=== PATIENT | female | born 1965 | race Caucasian/White ===

== ENCOUNTER → 2016-08-11 | Outpatient (CLI) | payer OTHER ==
[2016-08-11 11:03] LABS: CH 31.7; CHCM 33.1; HDW 2.17; HGB 14.7 gm/dL (11.4-16.0); MCH 31.5 pg (25.0-35.0); MCHC 32.7 g/dL (31.0-37.0); MCV 96.3 fL (80.0-100.0); Mean Platelet Volume 6.8; RBC 4.67 m/uL (3.80-5.40); RDW 13.2 % (11.5-15.5); WBC 17.3 k/uL (3.8-10.6)
== END | disposition home or self-care (01) ==
LOC: LABPAT 10:39
PROVIDERS: ATTEND Otolaryngology
DX: Z01.812 Encounter for preprocedural laboratory examination (principal)
CPT/HCPCS: 85027

== ENCOUNTER 2016-08-17 10:18 | Day surgery (SDC) | payer OTHER ==
[2016-08-11 15:59] VITALS: BMI 30.2
--- NOTE | 2016-08-17 07:29 | HP ---
DATE OF ADMISSION: Chief complaint is history of recurrent bilateral nasal polyps. HISTORY OF PRESENT ILLNESS: This patient is a very pleasant 51-year-old female who was recently seen in my office complaining of having nasal stuffiness but the patient has been using sinus rinses and also has been using Nasacort nasal spray which is prophylactic for nasal polyps. She had her last polypectomy performed in November of 2015. She states that she recently was switched by her insurance company from Nasacort to Flonase. I advised her that unfortunately Flonase does not have a history of suppressing nasal polyps and therefore, if they have returned, will have to see if we can either get her insurance to cover this or place her on another medication that we will suppress the recurrence of the nasal polyps. At the time that she was seen in my office, clinical examination intranasally revealed bilateral intranasal polyposis. The patient was given a 10-day course of a Decadron Dosepak in an effort to give her some relief with respect to the nasal stuffiness. It was recommended that she undergo a bilateral intranasal polypectomy under general anesthesia. Past medical history reveals that the patient has allergies to PENICILLIN, ASPIRIN, SULFA, SINGULAIR, and BENADRYL. Current medications include: 1. Hydrochlorothiazide. 2. Albuterol. 3. Ventolin. It is interesting to note the patient has a so-called triad of nasal polyps, aspirin sensitivity and allergies, so-called Greybull's triad. She has stopped smoking since I last saw her almost a year ago and I congratulated the patient on this. There is no history of diabetes mellitus or hypertension. There is a history of asthma. Review of systems is positive with respect to the respiratory system in that the patient is known to be asthmatic. The remainder of review of systems is unremarkable. Previous surgeries include multiple functional endoscopic sinus surgeries, right myringotomy with insertion of ventilation tubes, cholecystectomy, laser surgery for irregular periods, and bilateral nasal polypectomy x1. PHYSICAL EXAMINATION: This patient is a 51-year-old female who is alert and cooperative. HEENT EXAMINATION: Patient is normocephalic. Tympanic membranes are normal. Middle ear spaces are free of any fluid or infection. Pupils equal, round, and reactive to light and accommodation. Extraocular movements are within normal limits. Intranasal examination reveals slight septal deviation with compensatory hypertrophy of inferior turbinates and both nasal chambers are filled with nasal polyps bilaterally. Examination of oropharynx does not reveal evidence of any choanal polyps. Palpation of the neck, cranial nerves 2 through 12 and remainder of the head and neck exam is all within normal limits. CHEST/CARDIOVASCULAR: Both lung gonzalez are clear to percussion and auscultation. The patient is in regular sinus rhythm. S1 and S2 are present without evidence of any murmurs, S3s or S4s. Peripheral pulses are bilaterally symmetrical and within normal limits. ABDOMEN: There is no evidence of any masses, megaly or tenderness. The abdomen is soft. Skin is unremarkable. Musculoskeletal and neurological are within normal limits. The pelvic/rectal exam is deferred at this time because the patient has this done on a regular basis at her family physician's office. The remainder of physical exam is essentially unremarkable. IMPRESSION: Bilateral nasal polyposis. PLAN: The patient is scheduled undergo a bilateral intranasal polypectomy under general anesthesia. Attention RNs in the presurgical area: Please cancel any preoperative prophylactic antibiotics other that the one that I have ordered, namely Cleocin 900 mg IV x1 and also 1000 mg of Ofirmev IV, both to be given once an intravenous line has been established. If any prophylactic antibiotics other than the 900 Mg of Cleocin IV that I have ordered are sent to the presurgical area, please cancel them and return them to pharmacy and make sure the patient's account is credited appropriately. Again, the only presurgical prophylactic antibiotics the patient received is not 900 mg of Cleocin IV and along with her Ofirmev 1000 mg IV. I have explained the operation/procedure to the patient, including the risks, benefits, side effects, alternative therapies (including not receiving the proposed treatment or service), the likelihood of the patient achieving his/her goals, and potential recuperation problems for the procedure/sedation/analgesia, as well as any blood products, if indicated. I also explained to the patient the risks, benefits, and side effects of the alternatives, as well as the risks related to not receiving the proposed procedure, care treatment or services.
[~2016-08-17 10:18] MED LIST: DEXAMETHASONE SOD PHOSPHATE 10 MG/ML 1 ML VIAL IV ONE; HYDROmorphone 1 MG/ML 1 ML SYRINGE IVP PRN; LACTATED RINGERS 1,000 ML IV SCH; MIDAZOLAM 2 MG/2 ML VIAL IV PRN; ONDANSETRON 4 MG/2 ML VIAL IVP ONE; Pre Op ABX Message 1 EACH MISC MISCELLANE ONE; SCOPOLAMINE 1.5MG/72HR PATCH TRANSDERM ONE
[2016-08-17] MEDS ORDERED: LIDOCAINE 1% 20 ML VIAL (10MG/ML) FOR IV START INTRADERMA ONE (11:22)
[2016-08-17] MEDS ORDERED: CLINDAMYCIN 900 MG in DEXTROSE 5% IN WATER 50 ML IVPB ONE ×2 (11:30)
[2016-08-17] MEDS ORDERED: ACETAMINOPHEN IV (For NPO) 1,000 MG in EMPTY BAG 1 BAG IVPB ONE (11:30)
[2016-08-17] MEDS ORDERED: DEXAMETHASONE SOD PHOS (MDV) 100 MG/10 ML VIAL ONE (11:56)
[2016-08-17] MEDS ORDERED: NEOSTIGMINE 1 MG/ML 10 ML VIAL ONE (11:56)
[2016-08-17] MEDS ORDERED: GLYCOPYRROLATE 0.2 MG/ML 2 ML VIAL ONE (11:56)
[2016-08-17] MEDS ORDERED: MIDAZOLAM 2 MG/2 ML VIAL ONE (11:56)
[2016-08-17] MEDS ORDERED: LIDOCAINE 1% INJ 10MG/ML (20 ML MDV) ONE (11:56)
[2016-08-17] MEDS ORDERED: PROPOFOL 10 MG/ML 20 ML VIAL IV ONE (11:56)
[2016-08-17] MEDS ORDERED: SUCCINYLCHOLINE CHLORIDE 100 MG/5 ML SYR IV ONE (11:56)
[2016-08-17] MEDS ORDERED: ROCURONIUM BROMIDE 10 MG/ML 10 ML VIAL IV ONE (11:56)
[2016-08-17] MEDS ORDERED: fentaNYL (PF) 50 MCG/ML 2 ML AMP ONE (11:56)
[2016-08-17] MEDS ORDERED: OXYMETAZOLINE 0.05% NASL SPRAY 15 ML EA NOSTRIL ONE (12:20)
[2016-08-17 13:09] VITALS: TEMP 97.4
[2016-08-17 13:22] VITALS: RESP 18
[2016-08-17] MEDS ORDERED: HYDROcodone/APAP 5-325MG 1 EACH TAB PO ONE (14:00)
[2016-08-17 14:37] VITALS: BP 128/76; PULSE 64
--- NOTE | 2016-08-17 22:38 | OP ---
DATE OF SERVICE: SURGEON: RUBÉN CORDERO MD KELP GATHERER: PREOPERATIVE DIAGNOSIS: Bilateral intranasal polyposis. POSTOPERATIVE DIAGNOSIS: Bilateral intranasal polyposis. OPERATION: Bilateral intranasal polypectomy. ANESTHESIA: General. ESTIMATED BLOOD LOSS: Less than 40 mL. SPECIMENS REMOVED: COMPLICATIONS: None. OPERATIVE FINDINGS: OPERATIVE PROCEDURE: The patient was placed on the operating table in the supine position. After uneventful induction and endotracheal intubation, satisfactory general anesthesia was obtained. Next the patient was draped in the usual and customary fashion. Initially, Cottonoids which were saturated with Afrin nasal spray were placed alongside the right and left inferior turbinates respectively to achieve maximum vasoconstriction. Inspection revealed that both nasal chambers were completely filled with nasal polyps. The Cottonoids were left in place for a period of approximately 10 minutes to achieve maximum vasoconstriction of the inferior turbinates, and upon removal beginning on the right side, the nasal polyps were removed with multiple passes of a nasal polypectomy snare. Care was taken not to injure the inferior middle or superior turbinates. Next attention was directed to the left side, where the same procedure was carried out. That is to say, using the nasal polypectomy snare and using multiple passes with the snare, all of the large nasal polyps were removed without incident. Again care was taken not to injure the inferior middle or superior turbinates. Several very small nasal polyps were noted to remain, and these were vaporized using suction cautery. Next hemostasis was obtained by applying the agent Hemostat powder in the usual fashion to both nares. No packing was inserted. At this point the procedure was terminated. There were no intraoperative complications. All specimens were sent to Pathology in formalin for permanent sectioning. The patient tolerated the procedure well. A mustache dressing was applied and the patient was returned to the recovery room in satisfactory condition.
== END 2016-08-17 14:45 | disposition home or self-care (01) ==
LOC: OR 10:18
PROVIDERS: ATTEND Otolaryngology
DX: J33.9 Nasal polyp, unspecified (principal); I10 Essential (primary) hypertension; J44.9 Chronic obstructive pulmonary disease, unspecified; J45.909 Unspecified asthma, uncomplicated; Z87.891 Personal history of nicotine dependence; Z79.899 Other long term (current) drug therapy; Z88.6 Allergy status to analgesic agent; Z88.0 Allergy status to penicillin; Z88.8 Allergy status to other drugs, medicaments and biological substances
CPT/HCPCS: 88304; 30115; J2250; J1100 ×2; J2710; J2405; J2001; J3010; J0131; J0330; J2704

== ENCOUNTER 2019-04-07 08:34 | Day surgery (SDC) | payer BC, OTHER ==
[2019-04-05 14:26] VITALS: BMI 29.0
--- NOTE | 2019-04-07 05:20 | HP ---
HISTORY AND PHYSICAL CHIEF COMPLAINT: Nasal stuffiness and nasal polyps. HISTORY OF PRESENT ILLNESS: This patient is a very pleasant 53-year-old female who is well known to my office and was seen recently complaining of nasal stuffiness. The patient had returned from a trip in [place] and was noted to have significant difficulty breathing through her nose. She has a past history of recurrent intranasal polyps and chronic sinusitis. At the time that she was seen in my office, clinical examination intranasally revealed bilateral intranasal polyposis. It was recommended that the patient undergo an intranasal polypectomy under general anesthesia. PAST MEDICAL HISTORY: Past medical history reveals patient has multiple allergies to ASPIRIN, BENADRYL, PENICILLIN, and . Her current medications include Nasacort, hydrochlorothiazide, Ventolin inhaler, albuterol. REVIEW OF SYSTEMS: Review of systems reveals that the cardiovascular is positive for hypertension. Respiratory is positive for asthma. Gastrointestinal is negative. Metabolic/Endocrine is negative. The remainder of review of systems is negative. It is noted that the patient has a so-called Samter's triad of asthma, ASPIRIN allergy, and nasal polyps. PREVIOUS SURGERIES: Previous surgeries include cholecystectomy, laser surgery for irregular periods, bilateral intranasal polypectomy x2, right myringotomy with insertion of ventilation tube, and multiple functional endoscopic sinus surgeries. PHYSICAL EXAMINATION: This patient is a very pleasant 53-year-old female who is alert and cooperative. HEENT EXAMINATION: Patient is normocephalic. Tympanic membranes are normal. Middle ear spaces are free of any fluid or infection. Pupils equal, round, react to light and accommodation. Extraocular movements within normal limits. Intranasal examination reveals bilateral severe intranasal polyposis completely obstructing both nares. Examination of the oropharynx, cranial nerves 2 through 12 and remainder of the head and neck exam are within normal limits. CHEST/CARDIOVASCULAR: Both lung gonzalez are clear to percussion and auscultation. The patient is in regular sinus rhythm. S1, S2 are present without evidence of any murmurs, S3s or S4. Peripheral pulses are bilaterally symmetrical and within normal limits. ABDOMEN: There is no evidence of any masses, megaly, or tenderness. The abdomen is soft. SKIN: Is unremarkable. MUSCULOSKELETAL/NEUROLOGICAL: Are within normal limits. PELVIC RECTAL EXAM: The pelvic rectal exam is deferred at this time because the patient has this done on a regular basis at her family physician's office. The remainder of physical exam is unremarkable. IMPRESSION: Bilateral intranasal polyposis. PLAN: The patient is scheduled to undergo bilateral intranasal polypectomy under general anesthesia in the a.m. ATTENTION RNS IN THE PRE-SURGICAL AREA: I have ordered for this patient to receive 1000 mg of Ofirmev IV to be given once an intravenous line has been established. In addition to this, Dr. Heredia from the anesthesia department has ordered for this patient to receive 900 mg of clindamycin intravenously and this is okay. I have discussed the risks, benefits and alternative therapies for the above-mentioned procedure and for both sedation/analgesia as well as necessary blood product administration, if indicated, as they pertain to this patient. The patient has indicated his or her understanding and acceptance of the risks and procedures discussed. MICHEL / EMMAN: [id number] /
[~2019-04-07 08:34] MED LIST changes: +CLINDAMYCIN 900 MG in DEXTROSE 5% IN WATER 50 ML IVPB ONE; +HYDROmorphone 0.5 MG/0.5 ML SYRINGE IVP PRN; -HYDROmorphone 1 MG/ML 1 ML SYRINGE IVP PRN; +LIDOCAINE 1% 20 ML VIAL (10MG/ML) FOR IV START INTRADERMA PRN; -MIDAZOLAM 2 MG/2 ML VIAL IV PRN; -Pre Op ABX Message 1 EACH MISC MISCELLANE ONE
[2019-04-07 09:19] LABS: Glucose,Whole Blood 77 mg/dL (75-99)
[2019-04-07] MEDS ORDERED: IPRATROPIUM-ALBUTEROL 3 ML NEB INHALATION STA (09:27)
[2019-04-07] MEDS ORDERED: ACETAMINOPHEN IV (For NPO) 1,000 MG in EMPTY BAG 1 BAG IVPB ONE (09:45)
[2019-04-07] MEDS ORDERED: PROPOFOL 10 MG/ML 20 ML VIAL IV ONE (10:03)
[2019-04-07] MEDS ORDERED: LIDOCAINE 1% INJ 10MG/ML (20 ML MDV) ONE (10:03)
[2019-04-07] MEDS ORDERED: MIDAZOLAM 2 MG/2 ML VIAL ONE (10:03)
[2019-04-07] MEDS ORDERED: DEXAMETHASONE SOD PHOS (MDV) 100 MG/10 ML VIAL ONE (10:03)
[2019-04-07] MEDS ORDERED: ROCURONIUM BROMIDE 10 MG/ML 10 ML VIAL IV ONE (10:03)
[2019-04-07] MEDS ORDERED: NEOSTIGMINE 1 MG/ML 10 ML VIAL ONE (10:03)
[2019-04-07] MEDS ORDERED: fentaNYL (PF) 50 MCG/ML 2 ML AMP ONE (10:03)
[2019-04-07] MEDS ORDERED: GLYCOPYRROLATE 0.2 MG/ML 2 ML VIAL ONE (10:03)
[2019-04-07] MEDS ORDERED: OXYMETAZOLINE 0.05% NASL SPRAY 1 SPRAY BOTTLE NASAL ONE (10:26)
[2019-04-07 11:29] VITALS: TEMP 97.2
[2019-04-07 13:02] VITALS: BP 120/80; PULSE 65; RESP 18
--- NOTE | 2019-04-10 18:25 | OP ---
OPERATIVE REPORT DATE OF SURGERY: 04/07/2019. PREOPERATIVE DIAGNOSIS: Intranasal polyposis. POSTOPERATIVE DIAGNOSIS: Intranasal polyposis. ANESTHESIA: General anesthesia. PROCEDURE PERFORMED: Bilateral intranasal polypectomy. OPERATING SURGEON: Dr. Turk. COMPLICATIONS: None. ESTIMATED BLOOD LOSS: Less than 25 mL. OPERATIVE PROCEDURE: The patient was placed on the operating table in supine position. After uneventful induction and endotracheal intubation, satisfactory general anesthesia was obtained. Next, the patient was draped in usual customary fashion. Following this, both nares were packed with cottonoids which had been saturated with Afrin nasal spray and left in place for a period of approximately 7 minutes to achieve maximum vasoconstriction of the inferior turbinates. The cottonoid was subsequently removed and inspection revealed severe bilateral intranasal polypectomy. Therefore, using a nasal speculum and a nasal polyp snare, multiple passes with the nasal polyp snare beginning in the right naris removed all of the larger nasal polyps. These were sent in formalin to the pathology department for permanent sectioning. It is to be noted that the polyps taken from the right and from the left side would will be kept separate. Hemostasis was obtained using electrocautery. Suction cautery was also used to vaporize the smaller polyps. The patient was given 10 mg of Decadron intraoperatively to reduce any intranasal edema. Next, attention was directed to the patient's left naris where the same procedure was carried out. That is to say, using the nasal polypectomy snare, multiple passes with the snare, removed all of the larger nasal polyps, which were then placed in formalin and sent to Pathology for permanent sectioning. Again, hemostasis was obtained using suction cautery and also the smaller nasal polyps that remained were vaporized using the suction cautery. Next, cottonoid saturated with Afrin were placed in the right and left nasal chamber for a period of approximately 5 minutes to assist with hemostasis. Upon removing the cottonoids, no active bleeding was noted and therefore, both the right and left nasal chambers were thoroughly dusted with the Fernando hemaderm hemostatic powder in the usual fashion. Care was taken to suction the excess powder out of the nasopharynx. Further inspection revealed no active bleeding. A mustache dressing was created and applied. At this point, the procedure was terminated. Estimated blood loss was less than 25 mL. The patient tolerated the procedure well and was returned to the recovery room in satisfactory condition. MMODL / IJN: [id number] /
== END 2019-04-07 13:27 | disposition home or self-care (01) ==
LOC: OR 08:34
PROVIDERS: ATTEND Otolaryngology
DX: J33.9 Nasal polyp, unspecified (principal); J32.9 Chronic sinusitis, unspecified; I10 Essential (primary) hypertension; J45.909 Unspecified asthma, uncomplicated; Z88.6 Allergy status to analgesic agent; Z88.8 Allergy status to other drugs, medicaments and biological substances; Z88.0 Allergy status to penicillin; Z79.899 Other long term (current) drug therapy; Z79.52 Long term (current) use of systemic steroids; Z90.49 Acquired absence of other specified parts of digestive tract; Z98.890 Other specified postprocedural states; Z88.2 Allergy status to sulfonamides; Z87.891 Personal history of nicotine dependence; Z79.51 Long term (current) use of inhaled steroids; Z79.891 Long term (current) use of opiate analgesic; Z79.2 Long term (current) use of antibiotics
CPT/HCPCS: 94640; 81025; 88304; 30115; J2250; J1100 ×2; J2710; J2405; J2001; J3010; J0131; J2704

== ENCOUNTER → 2019-05-15 | Outpatient (CLI) | payer BC ==
--- NOTE | 2019-05-15 07:34 | US ---
EXAMINATION TYPE: US abdomen complete DATE OF EXAM: 05/15/2019 COMPARISON: NONE CLINICAL HISTORY: R10.11 RUQ Abd Pain. EXAM MEASUREMENTS: Liver Length: 13.1 cm Gallbladder Wall: Surgically absent CBD: 0.3 cm Spleen: 10.1 cm Right Kidney: 11.2 x 4.3 x 4.2 cm Left Kidney: 10.2 x 5.4 x 4.4 cm Pancreas: Visualized portions within normal limits. Portions of the pancreatic body and tail obscure d by bowel gas. Liver: wnl Gallbladder: Surgically absent Evidence for sonographic Newton's sign: no CBD: wnl Spleen: wnl Right Kidney: Slightly nodular mid pole renal cortex Left Kidney: wnl Upper IVC: wnl Abd Aorta: distal and bifurcation obscured by overlying bowel gas IMPRESSION: 1. Postcholecystectomy changes. 2. There is nodular mid pole right renal cortex anteriorly may be developmental. CT of the abdomen re commended to exclude neoplastic
== END | disposition home or self-care (01) ==
LOC: RADUSWWP 06:45
PROVIDERS: ATTEND Family Medicine
DX: N28.89 Other specified disorders of kidney and ureter (principal); Z90.49 Acquired absence of other specified parts of digestive tract
CPT/HCPCS: 76700

== ENCOUNTER → 2019-05-29 | Outpatient (CLI) | payer BC ==
[2019-05-29 08:09] LABS: African American GFR (CKD) >90 (>60 ml/min/1.73 sqM); Blood Urea Nitrogen 22 mg/dL (7-17)
--- NOTE | 2019-05-29 10:38 | CT ---
EXAMINATION TYPE: CT abdomen pelvis wo/w con DATE OF EXAM: 05/29/2019 COMPARISON: September 17, 2014 HISTORY: Disorder of kidney and ureter, unspecified CT DLP: 2073 mGycm CONTRAST: CT scan of the abdomen and pelvis is performed with Oral Contrast and without and with IV Contrast, p atient injected with 100 ml mL of Isovue 300. FINDINGS: LUNG BASES-: No visible nodule. No infiltrate. LIVER/GB: No calcified gallstones. No space occupying hepatic lesion. Biliary tree is of normal ca liber. PANCREAS: No inflammation. No distinct mass. SPLEEN: No splenic enlargement. No lesion seen. ADRENALS: No nodule. No thickening. KIDNEYS/BLADDER: No hydronephrosis. 3 mm nonobstructing calculus mid to upper pole left kidney. No d istinct renal mass. Urinary bladder grossly unremarkable. BOWEL: Normal appendix. Normal bowel caliber. No inflammation. Poor distention right hemicolon. GENITAL ORGANS: No gross abnormality. LYMPH NODES: No greater than 1cm abdominal or pelvic lymph nodes are appreciated. AORTA: No significant abnormality. OSSEOUS STRUCTURES: No significant abnormality is seen. OTHER: No significant additional abnormality is seen. IMPRESSION: 1. Nonobstructing calculus left kidney. Otherwise unremarkable study.
== END | disposition home or self-care (01) ==
LOC: RADCTMAIN 07:27
PROVIDERS: ATTEND Family Medicine
DX: N20.0 Calculus of kidney (principal); N28.9 Disorder of kidney and ureter, unspecified
CPT/HCPCS: 82565; 84520; 74178; 36415; Q9967 ×2

== ENCOUNTER 2020-04-27 13:30 | Inpatient (IN) | payer BC ==
--- NOTE | 2020-04-27 14:03 | ED ---
General Adult HPI - General Chief complaint: Neuro Symptoms/Deficit Stated complaint: Poss Stroke Time Seen by Provider: 04/27/20 13:44 Source: patient, family, RN notes reviewed Mode of arrival: wheelchair Limitations: no limitations - History of Present Illness Initial comments: Patient is a pleasant 54-year-old female presenting to the emergency Department with left facial weakness. Onset of symptoms was noticed when she woke up at 5 AM. Symptoms have a little bit worsened since that time. Last known well was around 10 PM yesterday before she went to bed. Patient states she has been having headaches moderate to severe waxing and waning over the past few days. Headache remains at this time. No extremity weakness. - Related Data Home Medications Medication Instructions Recorded Confirmed Albuterol Inhaler (Mhu) [Ventolin 1 - 2 puff INHALATION Q6HR PRN 10/24/14 04/07/19 Inhaler] Albuterol Nebulized [Ventolin 2.5 mg INHALATION Q4H PRN 10/24/14 04/07/19 Nebulized] Fluticasone/Salmeterol [Advair 1 inhalation PO BID PRN 10/24/14 04/07/19 100-50 Diskus] hydroCHLOROthiazide [Hydrodiuril] 25 mg PO DAILY 04/05/19 04/07/19 Previous Rx's Medication Instructions Recorded Acetaminophen with Codeine 1 tab PO Q4H PRN 3 Days #18 tab 04/06/19 [Tylenol w/codeine #3] Levofloxacin [Levaquin] 750 mg PO DAILY #10 tab 04/06/19 Allergies Allergy/AdvReac Type Severity Reaction Status Date / Time aspirin Allergy Anaphylaxis Verified 04/27/20 13:40 diphenhydramine HCl Allergy Anaphylaxis Verified 04/27/20 13:40 [From Benadryl] Penicillins Allergy Anaphylaxis Verified 04/27/20 13:40 Sulfa (Sulfonamide Allergy Dyspnea Verified 04/27/20 13:40 Antibiotics) Review of Systems ROS Statement: Those systems with pertinent positive or pertinent negative responses have been documented in the HPI. ROS Other: All systems not noted in ROS Statement are negative. Constitutional: Denies: fever Eyes: Denies: eye pain ENT: Denies: ear pain Respiratory: Denies: cough Cardiovascular: Denies: chest pain Endocrine: Denies: fatigue Gastrointestinal: Denies: abdominal pain Genitourinary: Denies: dysuria Musculoskeletal: Denies: back pain Skin: Denies: rash Neurological: Reports: as per HPI, headache, weakness Past Medical History Past Medical History: Asthma, Hypertension Additional Past Medical History / Comment(s): dexamethasone pack-last dose Apr 06, 2019,HX NASAL POLYPS History of Any Multi-Drug Resistant Organisms: None Reported Past Surgical History: Cholecystectomy, Uterine Ablation Additional Past Surgical History / Comment(s): mult SINUS SURG , EGD/COLONOSCOPY Past Anesthesia/Blood Transfusion Reactions: Motion Sickness, Postoperative Nausea & Vomiting (PONV) Past Psychological History: No Psychological Hx Reported Smoking Status: Never smoker Past Alcohol Use History: Occasional Past Drug Use History: None Reported - Past Family History Mother Family Medical History: No Reported History General Exam Limitations: no limitations General appearance: alert, in no apparent distress Head exam: Present: normocephalic Eye exam: Present: normal appearance, PERRL, EOMI, other (Facial weakness on the left side including the forehead. No tenderness over temporal artery) ENT exam: Present: normal oropharynx Neck exam: Present: normal inspection Respiratory exam: Present: normal lung sounds bilaterally Cardiovascular Exam: Present: regular rate, normal rhythm GI/Abdominal exam: Present: soft. Absent: tenderness Extremities exam: Present: normal inspection, full ROM. Absent: tenderness Neurological exam: Present: alert, oriented X3 Expanded Neurological exam: Present: protecting the airway Speech: Present: fluid speech Cranial nerves: EOM's Intact: Normal, Facial Sensation: Normal, Facial Palsy without Forehead Movement: Abnormal Left Sensory exam: Upper Extremity Light Touch: Normal, Lower Extremity Light Touch: Normal Motor strength exam: RUE: 5, LUE: 5, RLE: 5, LLE: 5 Eye Response: (4) open spontaneously Motor Response: (6) obeys commands Verbal Response: (5) oriented Psychiatric exam: Present: normal affect, normal mood Skin exam: Present: normal color Course Vital Signs 04/27/20 04/27/20 04/27/20 13:37 13:45 14:00 Temperature 98.6 F Pulse Rate 72 77 80 Respiratory 16 18 18 Rate Blood Pressure 164/90 206/120 171/98 O2 Sat by Pulse 100 98 98 Oximetry 04/27/20 04/27/20 04/27/20 14:15 14:30 14:45 Temperature Pulse Rate 76 74 76 Respiratory 18 18 18 Rate Blood Pressure 165/88 155/95 161/85 O2 Sat by Pulse 98 98 98 Oximetry 04/27/20 15:00 Temperature Pulse Rate 76 Respiratory 18 Rate Blood Pressure 149/92 O2 Sat by Pulse 98 Oximetry - Reevaluation(s) Reevaluation #1: 04/27/20 13:56 During NIH assessment by nursing staff patient did have difficulty finding several words. Patient reevaluated and admits to this problem and therefore patient was upgraded to a code stroke. EKG Findings - EKG Comments: EKG Findings:: Normal sinus rhythm 74. SD 136. QRS 84. QT 400. QTc 444. Normal axis. LVH criteria. No acute ST change. Medical Decision Making - Medical Decision Making Patient reevaluated and updated. Case was discussed with Dr. Viera who agrees patient is not a TPA candidate secondary to onset. Than 4.5 hours. He does recommend admission here with MRI with and without contrast, aspirin and subcu heparin. His was also discussed with Dr. Bonilla, who will admit for Dr. Kelley, who covers for Dr. Martinez. Patient does add that she has had approximately 14 different sinus surgeries. - Lab Data Result diagrams: 04/27/20 14:00 04/27/20 14:00 Lab Results 04/27/20 04/27/20 04/27/20 Range/Units 14:00 14:00 14:00 WBC 9.5 (3.8-10.6) k/uL RBC 4.73 (3.80-5.40) m/uL Hgb 15.4 (11.4-16.0) gm/dL Hct 46.2 H (34.0-46.0) % MCV 97.6 (80.0-100.0) fL MCH 32.5 (25.0-35.0) pg MCHC 33.3 (31.0-37.0) g/dL RDW 12.4 (11.5-15.5) % Plt Count 428 (150-450) k/uL Neutrophils % 53 % Lymphocytes % 35 % Monocytes % 4 % Eosinophils % 6 % Basophils % 1 % Neutrophils # 5.0 (1.3-7.7) k/uL Lymphocytes # 3.3 (1.0-4.8) k/uL Monocytes # 0.3 (0-1.0) k/uL Eosinophils # 0.6 (0-0.7) k/uL Basophils # 0.1 (0-0.2) k/uL PT 9.8 (9.0-12.0) sec INR 0.9 (<1.2) APTT 26.1 (22.0-30.0) sec Sodium 138 (137-145) mmol/L Potassium 3.6 (3.5-5.1) mmol/L Chloride 101 (98-107) mmol/L Carbon Dioxide 30 (22-30) mmol/L Anion Gap 7 mmol/L BUN 16 (7-17) mg/dL Creatinine 0.65 (0.52-1.04) mg/dL Est GFR (CKD-EPI)AfAm >90 (>60 ml/min/1.73 sqM) Est GFR (CKD-EPI)NonAf >90 (>60 ml/min/1.73 sqM) Glucose 104 H (74-99) mg/dL Calcium 9.9 (8.4-10.2) mg/dL Total Bilirubin 0.5 (0.2-1.3) mg/dL AST 37 H (14-36) U/L ALT 38 H (4-34) U/L Alkaline Phosphatase 84 (38-126) U/L Troponin I (0.000-0.034) ng/mL Total Protein 8.1 (6.3-8.2) g/dL Albumin 4.7 (3.5-5.0) g/dL 04/27/20 Range/Units 14:00 WBC (3.8-10.6) k/uL RBC (3.80-5.40) m/uL Hgb (11.4-16.0) gm/dL Hct (34.0-46.0) % MCV (80.0-100.0) fL MCH (25.0-35.0) pg MCHC (31.0-37.0) g/dL RDW (11.5-15.5) % Plt Count (150-450) k/uL Neutrophils % % Lymphocytes % % Monocytes % % Eosinophils % % Basophils % % Neutrophils # (1.3-7.7) k/uL Lymphocytes # (1.0-4.8) k/uL Monocytes # (0-1.0) k/uL Eosinophils # (0-0.7) k/uL Basophils # (0-0.2) k/uL PT (9.0-12.0) sec INR (<1.2) APTT (22.0-30.0) sec Sodium (137-145) mmol/L Potassium (3.5-5.1) mmol/L Chloride (98-107) mmol/L Carbon Dioxide (22-30) mmol/L Anion Gap mmol/L BUN (7-17) mg/dL Creatinine (0.52-1.04) mg/dL Est GFR (CKD-EPI)AfAm (>60 ml/min/1.73 sqM) Est GFR (CKD-EPI)NonAf (>60 ml/min/1.73 sqM) Glucose (74-99) mg/dL Calcium (8.4-10.2) mg/dL Total Bilirubin (0.2-1.3) mg/dL AST (14-36) U/L ALT (4-34) U/L Alkaline Phosphatase (38-126) U/L Troponin I <0.012 (0.000-0.034) ng/mL Total Protein (6.3-8.2) g/dL Albumin (3.5-5.0) g/dL - Radiology Data Radiology results: report reviewed (Computed tomography scan of the brain shows extensive density. Nasal sinuses consider severe sinusitis and tumor. CT angios of the head and neck has suboptimal exam. No significant abnormality.), image reviewed Disposition Clinical Impression: Facial weakness, Expressive aphasia Disposition: ADMITTED IP TO THIS HOSP Is patient prescribed a controlled substance at d/c from ED?: No Referrals: Naida Martinez MD [Primary Care Provider] - 1-2 days Decision Time: 15:13
[2020-04-27 14:11] LABS: Basophils # (A) 0.1 k/uL (0-0.2); Basophils % (A) 1 %; Eosinophils # (A) 0.6 k/uL (0-0.7); Eosinophils % (A) 6 %; HCT 46.2 % (34.0-46.0); HGB 15.4 gm/dL (11.4-16.0); Lymphocytes # (A) 3.3 k/uL (1.0-4.8); Lymphocytes % (A) 35 %; MCH 32.5 pg (25.0-35.0); MCHC 33.3 g/dL (31.0-37.0); MCV 97.6 fL (80.0-100.0); Mean Platelet Volume 6.8; Monocytes # (A) 0.3 k/uL (0-1.0); Monocytes % (A) 4 %; Neutrophils % (A) 53 %; Platelet Count 428 k/uL (150-450); RBC 4.73 m/uL (3.80-5.40); RDW 12.4 % (11.5-15.5); WBC 9.5 k/uL (3.8-10.6)
--- NOTE | 2020-04-27 14:16 | CT ---
EXAMINATION TYPE: CT brain wo con for TPA DATE OF EXAM: 04/27/2020 COMPARISON: None HISTORY: Lt arm weakness CT DLP: 999.5 mGycm Automated exposure control for dose reduction was used. Ventricles and sulci appear normal. There is no mass effect nor midline shift. There is no sign of in tracranial hemorrhage. The calvarium is intact. There is no evidence of cerebral edema. There is extensive mucosal thickening in the nasopharynx and maxillary sphenoid frontal and ethmoid s inuses. There is bone loss involving the medial wall of both maxillary sinuses. IMPRESSION: No intracranial abnormality. Extensive density in the paranasal sinuses. Consider the possibilities of both severe sinusitis and t umor. Follow-up recommended.
[2020-04-27 14:24] LABS: INR 0.9 (<1.2); Partial Thromboplastin Time 26.1 sec (22.0-30.0); Prothrombin Time 9.8 sec (9.0-12.0)
[2020-04-27 14:26] LABS: ALT 38 U/L (4-34); AST 37 U/L (14-36); African American GFR (CKD) >90 (>60 ml/min/1.73 sqM); Albumin 4.7 g/dL (3.5-5.0); Alkaline Phosphatase 84 U/L (38-126); Anion Gap 7 mmol/L; Blood Urea Nitrogen 16 mg/dL (7-17); Calcium 9.9 mg/dL (8.4-10.2); Carbon Dioxide 30 mmol/L (22-30); Chloride 101 mmol/L (98-107); Glucose 104 mg/dL (74-99); Non-African American GFR(CKD) >90 (>60 ml/min/1.73 sqM); Potassium 3.6 mmol/L (3.5-5.1); Sodium 138 mmol/L (137-145); Total Bilirubin 0.5 mg/dL (0.2-1.3); Total Protein 8.1 g/dL (6.3-8.2)
--- NOTE | 2020-04-27 15:07 | CT ---
EXAMINATION TYPE: CT angio head neck DATE OF EXAM: 04/27/2020 COMPARISON: None HISTORY: Lt arm weakness CT DLP: 447.2 mGycm Automated exposure control for dose reduction was used. CONTRAST: Performed with IV Contrast, patient injected with 65 mL of Isovue 370. There are 3-D post processed images. There is normal branching pattern of the great vessels on the aortic arch. There is bilateral arteria l flow in the subclavian arteries. There is arterial flow in the common internal and external carotid arteries bilaterally. There is some calcified plaque formation at the right carotid artery bifurcati on. There is less than 20% stenosis of the proximal right internal carotid artery. Left carotid arter y bifurcation appears fairly normal. There is arterial flow in both vertebral arteries. There is arterial flow in the anterior middle and posterior cerebral arteries. There is suboptimal co ntrast density in the arteries. I see no mass effect. There is no evidence of intracranial aneurysm o r neovascularity. There is normal contrast opacification of the venous sinuses. There is arterial waldemar w in the vertebrobasilar artery system. I see no evidence of intracranial arterial stenosis. There is extensive mucosal thickening in the paranasal sinuses. IMPRESSION: Suboptimal exam. No significant angiographic abnormality of the brain and neck.
--- NOTE | 2020-04-27 15:21 | XR ---
EXAMINATION TYPE: XR chest 2V DATE OF EXAM: 04/27/2020 COMPARISON: NONE HISTORY: Altered mental status TECHNIQUE: 2 views FINDINGS: Heart and mediastinum are normal. Lungs are clear. Diaphragm is normal. Bony thorax appears normal. There are chest leads. IMPRESSION: Normal chest.
[2020-04-27] MEDS ORDERED: MORPHINE SULFATE 4 MG/ML SYRINGE IVP STA (16:09)
[2020-04-27] MEDS: SODIUM CHLORIDE 0.9% 1,000 ML IV SCH (16:13)
[2020-04-27 16:39] VITALS: RESP 16
[2020-04-27] MEDS ORDERED: ALBUTEROL HFA INHALER INHALATION PRN (17:07)
[2020-04-27] MEDS ORDERED: ALBUTEROL NEBULIZED 2.5 MG/3 ML INHALATION PRN (17:07)
[2020-04-27] MEDS ORDERED: traMADol 50 MG TAB PO PRN (17:20)
[2020-04-27] MEDS ORDERED: CALCIUM CARBONATE 500 MG CHEWABLE PO PRN (17:21)
[2020-04-27] MEDS ORDERED: predniSONE 20 MG TAB PO STA (17:27)
[2020-04-27] MEDS: SYMBICORT 80-4.5 MCG INHALER INHALATION SCH (19:27)
[2020-04-27] MEDS: ARTIFICIAL TEARS-HYPROMELLOSE DROPS 15 ML BTL BOTH EYES SCH ×2 (20:09→20:11)
[2020-04-27] MEDS: HEPARIN SODIUM,PORCINE 5,000 UNIT/ML 1 ML VIAL SQ SCH (20:09)
[2020-04-28] MEDS: SODIUM CHLORIDE 0.9% 1,000 ML IV SCH ×2 (01:03→11:30)
[2020-04-28 03:05] LABS: Cholesterol 271 mg/dL (<200); HDL Cholesterol 39 mg/dL (40-60); LDL Cholesterol,Calculated 176 mg/dL (0-99); Triglycerides 280 mg/dL (<150)
[2020-04-28] MEDS: SYMBICORT 80-4.5 MCG INHALER INHALATION SCH (07:44)
[2020-04-28] MEDS: ARTIFICIAL TEARS-HYPROMELLOSE DROPS 15 ML BTL BOTH EYES SCH ×2 (08:39→11:29)
[2020-04-28] MEDS: HEPARIN SODIUM,PORCINE 5,000 UNIT/ML 1 ML VIAL SQ SCH (08:39)
[2020-04-28 08:45] VITALS: TEMP 97.7
--- NOTE | 2020-04-28 09:18 | P.HPIM ---
History of Present Illness H&P Date: 04/27/20 patient is a pleasant 54-year-old female came in with complaints of left-sided facial weakness along with the numbness in the perioral area on the left side as well as around the eye. Patient appears to have lower motor neuron pass. Patient does have history of sinusitis chronic sinusitis with the recent upper respiratory ALLERGIC rhinitis as well as middle earcondition about couple days ago. Patient denied any fever chills patient denied any nausea vomiting. Patient denied any other weakness there was a question about the slurred speech has been felt patient may have had slurred speech although when I evaluated the patient patient speech is within normal limits because of the concerns of slurred speech patient is admitted. CVA workup.CTA angios of the brain as well as brain CT did not show any significant abnormality. Patient wasn't will be evaluated by neurology. I'll leave the decision of the getting an MRI to neurology. Workup including LDL was ordered. Review of Systems REVIEW OF SYSTEMS: CONSTITUTIONAL: No fever, no malaise, no fatigue. HEENT: No recent visual problems or hearing problems. Denied any sore throat. CARDIOVASCULAR: No chest pain, orthopnea, PND, no palpitations, no syncope. PULMONARY: No shortness of breath, no cough, no hemoptysis. GASTROINTESTINAL: No diarrhea, no nausea, no vomiting, no abdominal pain. NEUROLOGICAL: as mentioned in HPI HEMATOLOGICAL: Denies any bleeding or petechiae. GENITOURINARY: Denies any burning micturition, frequency, or urgency. MUSCULOSKELETAL/RHEUMATOLOGICAL: Denies any joint pain, swelling, or any muscle pain. ENDOCRINE: Denies any polyuria or polydipsia. The rest of the 14-point review of systems is negative. Past Medical History Past Medical History: Asthma, Hypertension Additional Past Medical History / Comment(s): dexamethasone pack-last dose Apr 06, 2019,HX NASAL POLYPS History of Any Multi-Drug Resistant Organisms: None Reported Past Surgical History: Cholecystectomy, Uterine Ablation Additional Past Surgical History / Comment(s): mult SINUS SURG , EGD/COLONOSCOPY Past Anesthesia/Blood Transfusion Reactions: Motion Sickness, Postoperative Nausea & Vomiting (PONV) Smoking Status: Never smoker - Past Family History Mother Family Medical History: No Reported History Father Family Medical History: CVA/TIA Sister(s) Family Medical History: Hypertension Medications and Allergies Home Medications Medication Instructions Recorded Confirmed Type Albuterol Nebulized [Ventolin 2.5 mg INHALATION RT-QID PRN 10/24/14 04/27/20 History Nebulized] Fluticasone/Salmeterol [Advair 1 puff INHALATION RT-BID 10/24/14 04/27/20 History 100-50 Diskus] hydroCHLOROthiazide [Hydrodiuril] 25 mg PO DAILY 04/05/19 04/27/20 History Albuterol Inhaler [Ventolin Hfa 2 puff INHALATION RT-QID PRN 04/27/20 04/27/20 History Inhaler] Allergies Allergy/AdvReac Type Severity Reaction Status Date / Time aspirin Allergy Anaphylaxis Verified 04/27/20 16:53 diphenhydramine HCl Allergy Anaphylaxis Verified 04/27/20 16:53 [From Benadryl] Penicillins Allergy Anaphylaxis Verified 04/27/20 16:53 Sulfa (Sulfonamide Allergy Dyspnea Verified 04/27/20 16:53 Antibiotics) Physical Exam Vitals: Vital Signs Temp Pulse Pulse Resp BP BP Pulse Ox 04/28/20 08:35 97.7 F 74 16 158/76 98 04/28/20 04:00 77 16 161/84 98 04/28/20 00:00 71 16 131/79 98 04/27/20 20:00 97.8 F 82 16 177/89 98 04/27/20 16:30 98.1 F 80 16 171/78 96 04/27/20 16:01 98.0 F 78 18 171/92 98 04/27/20 15:15 73 18 162/96 98 04/27/20 15:00 76 18 149/92 98 04/27/20 14:45 76 18 161/85 98 04/27/20 14:30 74 18 155/95 98 04/27/20 14:15 76 18 165/88 98 04/27/20 14:00 80 18 171/98 98 04/27/20 13:45 77 18 206/120 98 04/27/20 13:37 98.6 F 72 16 164/90 100 Intake and Output 04/27/20 04/28/20 04/28/20 22:59 06:59 14:59 Intake Total 120 240 Output Total 220 Balance 120 -220 240 Intake: Oral 120 240 Output: Urine 220 Other: Voiding Method Toilet Toilet Toilet # Voids 0 1 1 Weight 64.41 kg 65.9 kg PHYSICAL EXAMINATION: GENERAL: The patient is alert and oriented x3, not in any acute distress. Well developed, well nourished. HEENT: Pupils are round and equally reacting to light. EOMI. No scleral icterus. No conjunctival pallor. Normocephalic, atraumatic. No pharyngeal erythema. No thyromegaly. CARDIOVASCULAR: S1 and S2 present. No murmurs, rubs, or gallops. PULMONARY: Chest is clear to auscultation, no wheezing or crackles. ABDOMEN: Soft, nontender, nondistended, normoactive bowel sounds. No palpable organomegaly. MUSCULOSKELETAL: No joint swelling or deformity. EXTREMITIES: No cyanosis, clubbing, or pedal edema. NEUROLOGICAL:left-sided weakness in the face appears to be element with some decrease increases in the forehead. No other focal deficits were appreciated. Rest of the cranial nerves are within normal limits SKIN: No rashes. Results CBC & Chem 7: 04/27/20 14:00 04/27/20 14:00 Labs: Abnormal Lab Results - Last 24 Hours (Table) 04/27/20 04/27/20 04/27/20 Range/Units 14:00 14:00 14:00 Hct 46.2 H (34.0-46.0) % Glucose 104 H (74-99) mg/dL AST 37 H (14-36) U/L ALT 38 H (4-34) U/L Triglycerides 280 H (<150) mg/dL Cholesterol 271 H (<200) mg/dL LDL Cholesterol, Calc 176 H (0-99) mg/dL HDL Cholesterol 39 L (40-60) mg/dL Thrombosis Risk Factor Assmnt - Choose All That Apply Each Factor Represents 1 point: Age 41-60 years, Obesity (BMI >25) Other Risk Factors: No Other congenital or acquired thrombophilia - If yes, enter type in comment: No Thrombosis Risk Factor Assessment Total Risk Factor Score: 2 Thrombosis Risk Factor Assessment Level: Low Risk Assessment and Plan Plan: -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 A decision regarding MRI up to neurology.order Lacri-Lube an eye patch at nighttime. -hypertension: Hold off on HCl for permissive hypertension if patient had a stroke -asthma without any significant exacerbation
--- NOTE | 2020-04-28 10:17 | P.DS ---
Providers Date of admission: 04/27/20 15:14 Attending physician: Servando Bonilla Consults: 04/27/20 15:15 Consult Physician Urgent Consulting Provider: Tonya Salamanca Consult Reason/Comments: Expressive aphasia and facial weakness Do you want consulting provider notified?: Yes Primary care physician: Naida Martinez [facility] Course: 54-year-old female came in with complaints of left-sided facial weakness along with the numbness in the perioral area on the left side as well as around the eye. Patient appears to have lower motor neuron pass. Patient does have history of sinusitis chronic sinusitis with the recent upper respiratory ALLERGIC rhinitis as well as middle earcondition about couple days ago. Patient denied any fever chills patient denied any nausea vomiting. Patient denied any other weakness there was a question about the slurred speech has been felt patient may have had slurred speech although when I evaluated the patient patient speech is within normal limits because of the concerns of slurred speech patient is admitted. CVA workup.CTA angios of the brain as well as brain CT did not show any significant abnormality. Patient wasn't will be evaluated by neurology. I'll leave the decision of the getting an MRI to neurology. Workup including LDL was ordered. 04/28/2020 Patient will be evaluated by neurology. I will leave the decision of the MRI to neurology. If cleared by neurology patient will be discharged today. Prednisone and Valtrex as per neurology if needed. Patient does have hyperlipidemia patient will be started on statin will be discharged on statin. If neurology believes echocardiogram need to be obtained will obtain echocardiogram as well as a part of stroke workup although possibly a stroke is low and patient probably has Juarez's palsy. PHYSICAL EXAMINATION: GENERAL: The patient is alert and oriented x3, not in any acute distress. Well developed, well nourished. HEENT: Pupils are round and equally reacting to light. EOMI. No scleral icterus. No conjunctival pallor. Normocephalic, atraumatic. No pharyngeal erythema. No thyromegaly. CARDIOVASCULAR: S1 and S2 present. No murmurs, rubs, or gallops. PULMONARY: Chest is clear to auscultation, no wheezing or crackles. ABDOMEN: Soft, nontender, nondistended, normoactive bowel sounds. No palpable organomegaly. MUSCULOSKELETAL: No joint swelling or deformity. EXTREMITIES: No cyanosis, clubbing, or pedal edema. NEUROLOGICAL:left-sided weakness in the face appears to be element with some decrease increases in the forehead. No other focal deficits were appreciated. Rest of the cranial nerves are within normal limits SKIN: No rashes. 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 Stroke workup as per neurology -hypertension: Patient can resume HCl upon discharge -asthma without any significant exacerbation Plan - Discharge Summary Discharge Rx Participant: No New Discharge Prescriptions: New Artificial Tears-Hypromellose [Artificial Tear Drops] 1 drops BOTH EYES QID #1 bottle Atorvastatin [Lipitor] 40 mg PO HS #30 tab Continue Fluticasone/Salmeterol [Advair 100-50 Diskus] 1 puff INHALATION RT-BID Albuterol Nebulized [Ventolin Nebulized] 2.5 mg INHALATION RT-QID PRN PRN Reason: Shortness Of Breath hydroCHLOROthiazide [Hydrodiuril] 25 mg PO DAILY Albuterol Inhaler [Ventolin Hfa Inhaler] 2 puff INHALATION RT-QID PRN PRN Reason: Shortness Of Breath Discharge Medication List Albuterol Nebulized [Ventolin Nebulized] 2.5 mg INHALATION RT-QID PRN 10/24/14 [History] Fluticasone/Salmeterol [Advair 100-50 Diskus] 1 puff INHALATION RT-BID 10/24/14 [History] hydroCHLOROthiazide [Hydrodiuril] 25 mg PO DAILY 04/05/19 [History] Albuterol Inhaler [Ventolin Hfa Inhaler] 2 puff INHALATION RT-QID PRN 04/27/20 [History] Artificial Tears-Hypromellose [Artificial Tear Drops] 1 drops BOTH EYES QID #1 bottle 04/28/20 [Rx] Atorvastatin [Lipitor] 40 mg PO HS #30 tab 04/28/20 [Rx] Follow up Appointment(s)/Referral(s): Naida Martinez MD [Primary Care Provider] - 3 Days Discharge Disposition: HOME SELF-CARE
[2020-04-28] MEDS ORDERED: predniSONE 20 MG TAB PO SCH (11:00)
[2020-04-28 11:41] VITALS: BP 183/98; PULSE 73
[2020-04-28] MEDS ORDERED: hydroCHLOROthiazide 25 MG TAB PO SCH (12:00)
--- NOTE | 2020-04-28 17:16 | P.CNNES ---
History of Present Illness Consult date: 04/28/20 Chief complaint: left facial weakness and numbness History of Present Illness: The patient is a 54-year-old female who is seen in neurologic consultation on April 28, 2020, via teleneurology. The patient states that at proximally 5 AM yesterday morning, she began to notice weakness of the left side of her face and drooping of her left eyelid. She also reportedly had slurring her speech and blurred vision from her left thigh. The patient reports having had a headache for the previous 3 days. Patient denies weakness, numbness and tingling of her extremities. There is no difficulty ambulating. Patient denies difficulty swallowing. Patient presented to the emergency department at [facility]. A code stroke was activated. CT scan of the brain revealed no signs of acute hemorrhage or infarct. CT angiogram was negative for occlusion or significant stenosis. Past Medical History Past Medical History: Asthma, Hypertension Additional Past Medical History / Comment(s): dexamethasone pack-last dose Apr 06, 2019,HX NASAL POLYPS History of Any Multi-Drug Resistant Organisms: None Reported Past Surgical History: Cholecystectomy, Uterine Ablation Additional Past Surgical History / Comment(s): mult SINUS SURG , EGD/COLONOSCOPY Past Anesthesia/Blood Transfusion Reactions: Motion Sickness, Postoperative Nausea & Vomiting (PONV) Smoking Status: Never smoker - Past Family History Mother Family Medical History: No Reported History Father Family Medical History: CVA/TIA Sister(s) Family Medical History: Hypertension Medications and Allergies Home Medications Medication Instructions Recorded Confirmed Type Albuterol Nebulized [Ventolin 2.5 mg INHALATION RT-QID PRN 10/24/14 04/27/20 History Nebulized] Fluticasone/Salmeterol [Advair 1 puff INHALATION RT-BID 10/24/14 04/27/20 History 100-50 Diskus] hydroCHLOROthiazide [Hydrodiuril] 25 mg PO DAILY 04/05/19 04/27/20 History Albuterol Inhaler [Ventolin Hfa 2 puff INHALATION RT-QID PRN 04/27/20 04/27/20 History Inhaler] Artificial Tears-Hypromellose 1 drops BOTH EYES QID #1 bottle 04/28/20 Rx [Artificial Tear Drops] Atorvastatin [Lipitor] 40 mg PO HS #30 tab 04/28/20 Rx valACYclovir HCL [Valtrex] 500 mg PO Q12HR #14 tab 04/28/20 Rx Allergies Allergy/AdvReac Type Severity Reaction Status Date / Time aspirin Allergy Anaphylaxis Verified 04/27/20 16:53 diphenhydramine HCl Allergy Anaphylaxis Verified 04/27/20 16:53 [From Benadryl] Penicillins Allergy Anaphylaxis Verified 04/27/20 16:53 Sulfa (Sulfonamide Allergy Dyspnea Verified 04/27/20 16:53 Antibiotics) Physical Examination - Vital Signs Vital Signs: Vital Signs Temp Pulse Pulse Resp BP BP Pulse Ox 04/28/20 11:30 73 16 183/98 99 04/28/20 08:35 97.7 F 74 16 158/76 98 04/28/20 04:00 77 16 161/84 98 04/28/20 00:00 71 16 131/79 98 04/27/20 20:00 97.8 F 82 16 177/89 98 04/27/20 16:30 98.1 F 80 16 171/78 96 04/27/20 16:01 98.0 F 78 18 171/92 98 04/27/20 15:15 73 18 162/96 98 04/27/20 15:00 76 18 149/92 98 04/27/20 14:45 76 18 161/85 98 04/27/20 14:30 74 18 155/95 98 04/27/20 14:15 76 18 165/88 98 04/27/20 14:00 80 18 171/98 98 04/27/20 13:45 77 18 206/120 98 04/27/20 13:37 98.6 F 72 16 164/90 100 Intake and Output 04/27/20 04/28/20 04/28/20 22:59 06:59 14:59 Intake Total 120 360 Output Total 220 Balance 120 -220 360 Intake: Oral 120 360 Output: Urine 220 Other: Voiding Method Toilet Toilet Toilet # Voids 0 1 1 Weight 64.41 kg 65.9 kg Gen.: The patient is reclining in the bed. She is well-nourished, well- developed and in no acute distress. HEENT: Head is atraumatic, normocephalic. Fundus not visualized. There is no scleral icterus. Mucous membranes are moist. Neck: Supple Heart: Regular rate and rhythm Extremities: Without edema Neurological examination Mental status: The patient is awake, alert and oriented 3. Her speech is clear. Cranial nerves: Pupils are equal, round and reactive to light. Visual gonzalez are full to confrontation. Extraocular movements are intact. Facial sensation is intact. There is a left lower motor neuron facial droop. There is left upper eyelid ptosis. There is decreased closure of the left eye. The patient is unable to elevate her left eyebrow. Hearing is grossly intact. Uvula and palate are midline. Shoulder shrug is symmetric. Tongue protrudes to the right of midline. Motor: Strength is 5/5 throughout. Sensation: Grossly intact to light touch Coordination: Finger to nose and rapid alternating movements are intact. Results - Laboratory Findings CBC and BMP: 04/27/20 14:00 04/27/20 14:00 Abnormal Lab Findings: Abnormal Labs 04/27/20 04/27/20 04/27/20 14:00 14:00 14:00 Hct 46.2 H Glucose 104 H AST 37 H ALT 38 H Triglycerides 280 H Cholesterol 271 H LDL Cholesterol, Calc 176 H HDL Cholesterol 39 L Assessment and Plan Assessment: 1. 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 Valtrex 500 mg by mouth twice a day 10 days 2. Recommend patient take her eye closed at night to prevent injury to the cornea 3. Recommended eyedrops and eye lubricant 4. Recommended patient do facial exercises 5. Patient is neurologically stable for discharge. MRI is not necessary as inpatient Time with Patient: Greater than 30 (spent 40 minutes with patient via teleneurology)
[2020-04-28] MEDS ORDERED: ATORVASTATIN 40 MG TAB PO SCH (21:00)
== END 2020-04-28 15:18 | disposition home or self-care (01) | DRG 74 ==
LOC: EC 13:30 → 3SCARD 15:14
PROVIDERS: ADMIT Internal Medicine; ATTEND Internal Medicine
DX: G51.0 Bell's palsy (principal); R47.01 Aphasia; I10 Essential (primary) hypertension; E78.5 Hyperlipidemia, unspecified; J45.909 Unspecified asthma, uncomplicated; R40.2362 Coma scale, best motor response, obeys commands, at arrival to emergency department; R40.2142 Coma scale, eyes open, spontaneous, at arrival to emergency department; R40.2252 Coma scale, best verbal response, oriented, at arrival to emergency department; Z79.899 Other long term (current) drug therapy; Z88.6 Allergy status to analgesic agent; Z88.0 Allergy status to penicillin; Z88.2 Allergy status to sulfonamides; Z88.8 Allergy status to other drugs, medicaments and biological substances; Z90.49 Acquired absence of other specified parts of digestive tract; Z98.890 Other specified postprocedural states; Z82.49 Family history of ischemic heart disease and other diseases of the circulatory system; Z82.3 Family history of stroke
CPT/HCPCS: 36415; 70450; 70496; 70498; 71046; 80053; 80061; 84484; 85025; 85610; 85730; 93005; 99285

== ENCOUNTER → 2023-01-27 | Outpatient (CLI) | payer BC ==
--- NOTE | 2023-01-27 15:12 | CT ---
EXAMINATION TYPE: CT iac wo con DATE OF EXAM: 01/27/2023 COMPARISON: 04/27/2020 HISTORY: Tinnitus, hearing loss CT DLP: 142.70 mGycm CONTRAST: 0 mL of Isovue 300 The paranasal sinuses are examined in the axial plane at 2 mm thick sections. Reconstructed images i n the coronal plane were obtained. There have been prior uncinectomies. There is diffuse mucosal thickening through the maxillary sinuses. Mucosal thickening and opacificati on of the ethmoid air cell regions is present. Prior ethmoidectomies. There is mucosal thickening and opacification of the sphenoid sinuses. Minimal mucosal thickening is within the right frontal sinus. Left septal deviation is noted. Mastoid air cells are clear. External auditory canals and middle ears are clear. Semicircular canals are normal. Cochlea are shelia l. Internal auditory canals appear normal without expansion or erosion. Scutum are normal. The incus malleus have normal orientation. No opacification of the attics is evident. Cerebellar pontine angles are normal. No discrete masses are evident. Portions of the brain included within the field of view appear unremarkable. IMPRESSIONS: 1. No suspicious changes to account for tinnitus. 2. Chronic sinusitis and/or polyposis. 3. Postsurgical changes through the nasal passages including bilateral uncinectomies and ethmoidectom ies.
== END | disposition home or self-care (01) ==
LOC: RADCTMAIN 08:16
PROVIDERS: ATTEND Otolaryngology
DX: H93.19 Tinnitus, unspecified ear (principal); H91.90 Unspecified hearing loss, unspecified ear; J32.9 Chronic sinusitis, unspecified; Z98.890 Other specified postprocedural states
CPT/HCPCS: 70480